=== PATIENT | male | born 1945 | race Caucasian/White ===

== ENCOUNTER 2017-08-13 13:00 | Inpatient (IN) | payer OTHER, MEDICARE ==
[~2017-08-13] VITALS: Ht 180.3 cm; Wt 79.5 kg
[~2017-08-13 13:00] MED LIST: IPRASOL4 INH; TIOTCAP INH; advair diskus INH; prednisone PO
[2017-08-13 15:06] VITALS: BP 148/75; PULSE 69; TEMP 36.8; O2SAT 92; Ht 180.3 cm; Wt 79.5 kg
[2017-08-13] MEDS ORDERED: MAGNESIUM HYDROXIDE SUSP 30 ML UDC PO PRN (16:00)
[2017-08-13] MEDS ORDERED: ALUMINUM/MAGNESIUM/SIMETH (MAALOX MAX) 30 ML UDC PO PRN (16:00)
[2017-08-13] MEDS ORDERED: ONDANSETRON INJ 2 MG/ML 2 ML VIAL IV PRN (16:00)
[2017-08-13] MEDS ORDERED: ACETAMINOPHEN 325 MG TAB PO PRN (16:00)
[2017-08-13] MEDS ORDERED: ALBUT/IPRATROP 3MG/0.5MG NEB 3 ML VIAL INH PRN (16:00)
[2017-08-13 16:15] VITALS: O2SAT 93
--- NOTE | 2017-08-13 16:35 | DIAGNOSTIC IMAGING REPORT ---
CHEST 2 VIEWS ROUTINE CLINICAL HISTORY: 71 years-old Male presenting with copd eval infiltrate or volume loss. TECHNIQUE: PA and lateral views of the chest were obtained. COMPARISON: 08/24/2015. FINDINGS: Atherosclerosis of the aortic arch. Cardiac silhouette normal in size. Mild hyperinflation. No focal opacity. No large effusion or pneumothorax. Degenerative changes of the thoracic spine. Mild height loss of several lower thoracic vertebral bodies, which is chronic. This may imply underlying osteopenia. Upper abdomen normal. IMPRESSION: 1. Mild hyperinflation could suggest underlying emphysema. No focal infiltrate to suggest pneumonia. Electronically signed by: Aman Cheney M.D. 08/13/2017 4:33 PM Dictated Date/Time: 08/13/2017 4:31 PM
[2017-08-13] MEDS: HEPARIN SOD 5000 UNIT/0.5 ML CARP SQ SCH (18:25)
[2017-08-13 19:51] VITALS: PULSE 67; O2SAT 93
[2017-08-13] MEDS: ALBUT/IPRATROP 3MG/0.5MG NEB 3 ML VIAL INH SCH (19:51)
[2017-08-13] MEDS: GUAIFENESIN 600 MG TABCR PO SCH (20:49)
--- NOTE | 2017-08-13 20:57 | History and Physical ---
History & Physical Date & Time of Service: Aug 13, 2017 at 20:50 Chief Complaint: Copd Exacerbation Primary Care Physician: Charli Real M.D. History of Present Illness 71-year-old male transferred from [facility] at the request of their inpatient service. Patient reportedly was admitted to their facility on 10 August after a near syncopal episode shortness of breath and pleuritic chest pain. Patient evaluation which included a cardiology evaluation and echocardiogram CT scan of his chest to evaluate for a wart 0.3 cm fusiform aneurysm that appears to be stable. Cardiology at that point time did not believe the patient had any significant acute coronary syndrome more on stable cardiac issues. The patient does take typically aspirin metoprolol daily. Patient is a baseline history of oxygen dependent COPD or chronic respiratory failure with hypoxia from previous tobacco abuse. He subsequently has been on a prednisone tapering dose Pro Air HFA Brethine and Brio elliptical along with Combivent Respimat. On the CT scan to look for this aneurysm which was measured on that tested 4.2 x 4.1 there was marked mucus plugging in the lower lobes with subsegmental bronchi and some atelectasis right greater than left. The patient previously has had a bronchoscopy at our facility for similar circumstances and although they attempted to discharge the patient home his breathlessness pleuritic chest pain and coughing with inability to feel comfortable prompted transfer for pulmonary evaluation. Family History Family history is positive for old age diabetes systemic staph infection Social History Smoking Status: Current Some Day Smoker (Patient continues to smoke small amounts of cigarettes daily) Marital Status: Immunizations History of Influenza Vaccine: Unknown Allergies Coded Allergies: No Known Allergies (Unverified , 09/18/15) Home Medications Scheduled Tiotropium [place] (Spiriva Handihaler), 1 CAP INH DAILY [advair diskus], 2 PUFF INH DAILY [prednisone], 1 TAB PO DAILY Scheduled PRN Ipratropium-Albuterol (Duoneb), 1 TREATMENT INH Q4H PRN for SOB/Wheezing Review of Systems ROS: well nourished well developed. No double vision blurry vision No problems with speech or swallowing No palpitations, chest pain or pressure No Wheezing but feels short of breath has pleuritic chest pain coughing and nonproductive of mucus wearing 3 L of oxygen No abdominal pain nausea vomiting diarrhea changes in appetite or weight No burning urine urine frequency or changes in color No focal joint pain or muscle pain No skin rashes or oral lesions No unusual bruising or bleeding No focused back pain or numbness or loss of strength No changes in memory or confusion Physical Exam Vital Signs Date Time Temp Pulse Resp B/P (MAP) Pulse Ox O2 Delivery O2 Flow Rate FiO2 08/13/17 19:51 67 18 93 Nasal Cannula 3.0 08/13/17 16:15 93 Nasal Cannula 3.0 08/13/17 15:06 92 Nasal Cannula 3.0 08/13/17 15:06 36.8 69 20 148/75 (99) 92 Nasal Cannula 3.0 General Appearance: WD/WN, + mild distress, + thin Head: normocephalic, atraumatic Eyes: normal inspection, sclerae normal Neck: supple, trachea midline Respiratory/Chest: + respiratory distress, + decreased breath sounds, + accessory muscle use Cardiovascular: regular rate, rhythm, no murmur Abdomen/GI: normal bowel sounds, non tender, soft Back: normal inspection, no muscle spasm Extremities/Musculoskelatal: no pedal edema, normal range of motion Neurologic/Psych: alert, oriented x 3 Skin: normal color, no rash Diagnostics Laboratory Results Results Past 24 Hours Test 08/13/17 16:57 Range/Units Prothrombin Time 10.7 9.0-12.0 SECONDS Prothromb Time International Ratio 1.0 0.9-1.[address] of CT scan from [facility] as mentioned in mucous plugging Impression Assessment and Plan 71-year-old male transferred from [facility] with chronic oxygen dependent hypoxic respiratory failure with failure to improve despite pulmonary toilet chest vest steroid treatment Mucous plugging, the patient be placed on Mucinex have a chest vest pulmonary consultation considering acetylcysteine. If need be will have a have him evaluated for bronchoscopy Oxygen dependent COPD chronic respiratory failure with hypoxia the patient will be supplemented with oxygen as needed prednisone 40 mg duo nebs and will add formoterol if needed Cardiovascular the patient is maintained on aspirin and metoprolol 0.5 twice daily This patient requires Ativan to sleep Tobacco abuse the patient is currently still smoking we did encourage him to have smoking cessation DVT prevention's heparin subcu Advanced Directives Existing Living Will: No Existing Power of Platform Mill Supervisor: No Resuscitation Status VTE Prophylaxis Will order VTE Prophylaxis: Yes
[2017-08-13] MEDS: LORAZEPAM 0.5 MG TAB PO SCH (21:24)
[2017-08-13 23:02] VITALS: BP 157/83; PULSE 60; TEMP 36.8; O2SAT 94
[2017-08-14] VITALS (10 sets, daily range): BP systolic 145–170; BP diastolic 78–96; PULSE 56–79; TEMP 36.4–36.8; O2SAT 92–96
[2017-08-14] MEDS: HEPARIN SOD 5000 UNIT/0.5 ML CARP SQ SCH ×2 (05:33→19:17)
[2017-08-14] MEDS: ALBUT/IPRATROP 3MG/0.5MG NEB 3 ML VIAL INH SCH ×5 (08:21→19:49)
[2017-08-14 08:31] LABS: HEMATOCRIT 38.9 % (42-52); HEMOGLOBIN 13.2 g/dL (14.0-18.0); MEAN CELL VOLUME 90.7 fL (80-100); MEAN CORPUSCULAR HEMOGLOBIN 30.8 pg (25-34); MEAN CORPUSCULAR HGB CONC 33.9 g/dl (32-36); MEAN PLATELET VOLUME 8.5 fL (7.4-10.4); PLATELET COUNT 216 K/uL (130-400); RED CELL DISTRIBUTION WIDTH CV 14.1 % (11.5-14.5); RED CELL DISTRIBUTION WIDTH SD 46.5 fL (36.4-46.3); WHITE BLOOD COUNT 12.14 K/uL (4.8-10.8)
[2017-08-14] MEDS: GUAIFENESIN 600 MG TABCR PO SCH ×2 (08:46→21:40)
[2017-08-14 09:07] LABS: CALCIUM 8.5 mg/dl (8.5-10.1); CREATININE 1.17 mg/dl (0.60-1.40); POTASSIUM 3.7 mmol/L (3.5-5.1)
--- NOTE | 2017-08-14 10:19 | PULMONARY CONSULTATION ---
DATE OF CONSULTATION: 08/14/2017 TIME: 8:25 a.m. REPORT OF CONSULTATION: The patient was seen in room 381. He is a 71-year-old male who has a history of breathing difficulties for about 5 years. He is treated for COPD. He was admitted to [facility] on or about 08/10/2017. At that time, he had shortness of breath. He states his chest was rattling. He had some chest tightness related to breathing. He denies true pain in the chest. Apparently, he felt like he could pass out from the perspective of being so short of breath. He did pass out and he denies that he was having a severe cough giving near tussive syncope. He underwent an evaluation there for a couple of days. Reportedly, cardiac sarah, he checked out without any acute issues. They did a CAT scan of the chest to evaluate an aortic aneurysm. Reportedly, he had secretions seen in the lower lung serrato. The patient states he was not feeling much better. He was concerned about going home. The patient lives by himself. He has a large bag of various medicines that he is on or has been on. He was actually sick for about 3 weeks before coming to the hospital. He was treated first with cefuroxime and prednisone. He states at that time he had a very low-grade fever. He had a lot of chest congestion, which did not resolve. He thinks he was on a second antibiotic as well. The patient states that he was hospitalized at [facility] in October 2016. He was discharged to a alf where he stayed for 7 weeks. He did not smoke at all while he was in the alf and he felt great. Following discharge, he gradually has increased his smoking. He smokes what he describes as small cigars. He states most of his life he smoked about 11 per day. He is now smoking 1 or less than 1, but he is smoking. He notices he coughs more when he smokes. In 2015, he had an outpatient bronchoscopy done by Dr. Ireland at [facility]. Reportedly, he had very extensive secretions. The patient relates that he did not feel too much better afterwards. The patient lives alone. He has steps from the basement up stairs. He tries not to do the steps very often because he gets short of breath. He is winded with relatively minimal exertion. He is finding it harder to care for himself. He states his house is a total mess and he feels that he needs some help in that regard. His energy level has been low. He is not having any heartburn or upset stomach. He is having difficulty with urination. His stream is very slow. He has been on Spiriva which could be contributing to that. The patient indicates that in terms of his breathing medicines, he is taking Mucinex twice a day with each dose being 600 mg. He also does neb treatments with DuoNebs about 3 times per day and does Combivent Respimat about twice per day. He does Advair 500/50 one puff b.i.d. He has ProAir for rescue. I do not believe he is on everyday prednisone. SOCIAL HISTORY: The patient smoked cigars as noted. He has smoked for 50 years. 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 It was very desean. FAMILY HISTORY: Mother at age 82, had diabetes and she had a staph infection. Father in his 90s from what the patient describes as old age. He states he had 11 siblings and none of them had any significant lung problems. PAST SURGICAL HISTORY: 1. Removal of a cyst from his scalp. 2. Hernia repair. 3. Bronchoscopy. PAST MEDICAL HISTORY: The patient denies illnesses except for his lung problems. He does admit, however, he is taking a medicine for his prostate. REVIEW OF SYSTEMS: Negative except for the above-mentioned complaints. Ten systems reviewed. PHYSICAL EXAMINATION: GENERAL: The patient is a 71-year-old male who was cooperative, alert and oriented. He was in no distress. VITAL SIGNS: Temperature is 36.4. He has not had any fevers since admission. He appeared reasonably comfortable at rest. HEENT: Pupils were reactive. Nares were clear. Mouth exam showed dry membranes. There was no teeth on top and decreased teeth on the bottom. No evidence of oral candidiasis was noted. NECK: Palpation of the neck reveals no lymph nodes. HEART: Heart rate was 70 per minute. The rhythm is regular. Blood pressure 170/96. The patient denied a history of hypertension. LUNGS: Auscultation of the lung serrato reveals rhonchi bilaterally. His respiratory rate was 18 breaths per minute. Saturation was 92% on 3 liters and this was taken by myself. ABDOMEN: Soft. Bowel sounds were normal. There was no tenderness to palpation, masses or organomegaly. EXTREMITIES: Showed no cyanosis, clubbing or edema. He has some scarring on the left lower leg anteriorly. He states he has to take some antibiotics for this periodically. LABORATORY DATA: We have no laboratory studies done since he was admitted here. I could not find records from [facility] during this most recent hospital stay prior to transfer. IMPRESSIONS: 1. Chronic obstructive pulmonary disease with exacerbation. 2. Nicotine addiction. COMMENTS: The patient appears to have a very significant COPD. He states he has never had a pulmonary function test. Perhaps we could get a baseline spirometry pre and post today, if possible. I would suggest ambulating the patient as much as possible utilizing his O2 at 3 liters. I believe increased ambulation will perhaps help him with secretion clearance. He does have a flutter valve in his room. He states he has never used this before. I believe he should discontinue using the Spiriva because of his prostate problems. He should be off at least 2 weeks to reassess if his urination is better. We would add some Mucomyst twice per day by nebulizer. If the patient does not improve, he would be a candidate for a bronchoscopy. Presumably, this could be done on Thursday if need be. I am probably going to order an arterial blood gas for him to evaluate his CO2 levels before undergoing a bronchoscopy. He did have difficulty with oxygen desaturations during the prior bronchoscopy and the procedure had to be terminated early. The patient is on terbutaline tablets at home. I think he should discontinue that. Thank you for asking me to assist in his care.
[2017-08-14] MEDS: ACETYLCYSTEINE INHAL SOLN 10% 4 ML INH SCH ×3 (10:30→19:49)
[2017-08-14] MEDS ORDERED: NURSING VERBAL MED ORDER ONE ×2 (11:00)
[2017-08-14] MEDS ORDERED: METOPROLOL SUCC 25MG EXT REL TAB PO ONE (11:15)
--- NOTE | 2017-08-14 11:52 | Clinical Documentation Query ---
CLINICAL DOCUMENTATION QUERY Dr. BAIN, In your clinical opinion is this patient being managed for: ( ) Exacerbation COPD ( ) Not Agree ( ) Other explanation of clinical findings (Please Explain) ( ) Unable to determine (Please Define) ( ) Need to Discuss The medical record reflects the following clinical findings, treatment, and risk factors. Clinical Indicators: 71 yo male transferred from [facility] due to continued dyspnea, pleuritic chest pain and coughing. CXR with mild hyperinflation suggesting possible emphysema. Treatment: O2 support, Pulmonary consult, add mucomyst nebs, ABG, prednisone, duonebs Risk Factors:severe COPD, continued tobacco use, Please clarify and document your clinical opinion in the progress notes and discharge summary. Terms such as "probable", "suspected", "likely", "questionable", "possible", or "still to be ruled out" are acceptable. IF IN AGREEMENT, YOU MUST DOCUMENT ABOVE DIAGNOSTIC STATEMENT IN DAILY PROGRESS NOTES AND DISCHARGE SUMMARY. This document is not part of the patient's record. Thank You, Ronel Guerra, RN [phone]
[2017-08-14] MEDS: LORAZEPAM 0.5 MG TAB PO SCH (21:40)
[2017-08-14] MEDS: METOPROLOL SUCC 25MG EXT REL TAB PO SCH (21:43)
[2017-08-15] VITALS (8 sets, daily range): BP systolic 126–173; BP diastolic 66–91; PULSE 54–76; TEMP 36.4–36.6; O2SAT 93–96
[2017-08-15] MEDS: HEPARIN SOD 5000 UNIT/0.5 ML CARP SQ SCH ×2 (05:52→18:00)
[2017-08-15] MEDS: ACETYLCYSTEINE INHAL SOLN 10% 4 ML INH SCH ×2 (07:23→19:53)
[2017-08-15] MEDS: ALBUT/IPRATROP 3MG/0.5MG NEB 3 ML VIAL INH SCH ×4 (07:23→19:52)
--- NOTE | 2017-08-15 08:29 | Progress Note ---
Subjective Date of Service: Aug 14, 2017. Subjective Pt evaluation today including: conversation w/ patient, physical exam Patient seen at 14:00 on Aug 14, 2017 Patient admitted for COPD exacerbation. Patient reports having wheezing and reports feeling SOB at rest. Patient denies fever, chills, nausea, vomiting. Review of Systems Constitutional: No fever, No chills Eyes: No worsening of vision Respiratory: + cough, + wheezing, + shortness of breath Cardiac: No chest pain Abdomen: No pain, No nausea Musculoskeletal: No joint pain Neurologic: + memory loss Heme: No abnormal bleeding/bruising Endo: No fatigue Skin: No rash All Other Systems: Reviewed and Negative Objective Vital Signs Date Time Temp Pulse Resp B/P (MAP) Pulse Ox O2 Delivery O2 Flow Rate FiO2 08/15/17 07:46 36.4 54 20 173/84 (113) 94 Nasal Cannula 3.0 08/15/17 07:23 57 16 93 Nasal Cannula 3.0 08/15/17 07:15 Nasal Cannula 3.0 08/15/17 03:36 56 156/84 (108) 08/15/17 00:30 Nasal Cannula 3.0 08/14/17 23:07 36.7 56 22 160/95 (116) 96 Nasal Cannula 2.0 08/14/17 21:40 73 145/78 (100) 08/14/17 19:35 73 16 96 Nasal Cannula 3.0 08/14/17 16:22 73 16 96 Nasal Cannula 3.0 08/14/17 16:10 96 Nasal Cannula 3.0 08/14/17 15:21 36.8 73 18 165/92 (116) 96 Nasal Cannula 3.0 08/14/17 10:37 79 160/92 (114) 92 Nasal Cannula 3.0 08/14/17 09:37 94 Nasal Cannula 3.0 Physical Exam General Appearance: WD/WN, no apparent distress Eyes: normal inspection ENT: normal ENT inspection Neck: supple, no adenopathy Respiratory/Chest: + pertinent finding (BL rhonchi) Cardiovascular: regular rate, rhythm, no edema Abdomen: normal bowel sounds, non tender, soft Extremities: normal range of motion, normal inspection Neurologic/Psychiatric: alert, oriented x 3 Skin: normal color Lymphatic: no adenopathy Laboratory Results Last 24 Hours Test 08/14/17 09:05 Arterial Blood pH 7.43 Arterial Blood Partial Pressure CO2 42 mmHg Arterial Blood Partial Pressure O2 65 mm/Hg Arterial Blood HCO3 27 mmol/L Arterial Blood Oxygen Saturation 91.7 % Arterial Blood Base Excess 2.5 mEq/L Arterial Blood Gas Delivery 3 LITERS Ethan Test POS Assessment and Plan 71-year-old male transferred from [facility] with chronic oxygen dependent hypoxic respiratory failure with failure to improve despite pulmonary toilet chest vest steroid treatment Hypoxic resp. failure Likely from mucous plugging Appreciate pulmonary recommendations. will likely require bronch on Thursday. Added mucomyst Oxygen dependent COPD chronic respiratory failure with hypoxia the patient will be supplemented with oxygen as needed prednisone 40 mg duo nebs Cardiovascular the patient is maintained on aspirin and metoprolol 0.5 twice daily Insomnia requires Ativan to sleep Tobacco abuse currently still smoking we did encourage him to have smoking cessation DVT prevention's heparin subcu Continued [facility] stay due to: other (SOB/ Bronch thursday if no improvement over )
[2017-08-15 08:44] LABS: HEMATOCRIT 40.8 % (42-52); MEAN CELL VOLUME 91.1 fL (80-100); MEAN CORPUSCULAR HEMOGLOBIN 31.3 pg (25-34); MEAN CORPUSCULAR HGB CONC 34.3 g/dl (32-36); MEAN PLATELET VOLUME 8.7 fL (7.4-10.4); PLATELET COUNT 215 K/uL (130-400); RED CELL DISTRIBUTION WIDTH CV 14.1 % (11.5-14.5); RED CELL DISTRIBUTION WIDTH SD 46.6 fL (36.4-46.3); WHITE BLOOD COUNT 12.39 K/uL (4.8-10.8)
[2017-08-15] MEDS: GUAIFENESIN 600 MG TABCR PO SCH ×2 (08:46→20:46)
[2017-08-15] MEDS: METOPROLOL SUCC 25MG EXT REL TAB PO SCH ×2 (08:47→20:45)
[2017-08-15 09:12] LABS: CALCIUM 8.4 mg/dl (8.5-10.1); CREATININE 1.16 mg/dl (0.60-1.40); POTASSIUM 3.7 mmol/L (3.5-5.1)
--- NOTE | 2017-08-15 14:17 | PULMONARY PROGRESS NOTE ---
DATE: 08/15/2017 TIME: 1:40 p.m. SUBJECTIVE: The patient believes he feels better today. He is not as short of breath. However, although he feels better, he has not coughed up any phlegm. His sister was with him during this evaluation. He is not having any specific complaints at present. OBJECTIVE: GENERAL: The patient appeared comfortable. VITAL SIGNS: Temperature was 36.4. CARDIOVASCULAR: The heart rate was 66 per minute. The rhythm was regular. Blood pressure 173/84. LUNGS: Lung serrato revealed mild rhonchi bilaterally. It does seem to be a little less prominent than yesterday. Respiratory rate was 16 breaths per minute. Saturation was 94% on 3 liters. EXTREMITIES: Showed no cyanosis, clubbing or edema. LABORATORY DATA: White count is 12.39. Hemoglobin 14. Platelets 215,000. Blood gas showed a pH of 7.43 with a pCO2 of 42 and a pO2 of 65. Electrolytes were normal. BUN was 30 with a creatinine of 1.16. We did arrange for the patient to have a pulmonary function test done yesterday. This showed a moderate obstructive pattern with no change following bronchodilators. IMPRESSIONS: 1. Chronic obstructive pulmonary disease with exacerbation. 2. Probable retained secretions. 3. Nicotine addiction. COMMENTS: Would continue with the current therapy. Unless the patient is significantly improved tomorrow, we will tentatively set him up for a scope on Thursday by Dr. Ireland. He has been on vacation and thus we cannot confirm 100% that he can do this, but we are hopeful that he could.
[2017-08-15] MEDS: LORAZEPAM 0.5 MG TAB PO SCH (20:45)
[2017-08-16] VITALS (9 sets, daily range): BP systolic 134–144; BP diastolic 84–92; PULSE 52–82; TEMP 36.5–37.1; O2SAT 90–97
[2017-08-16] MEDS: HEPARIN SOD 5000 UNIT/0.5 ML CARP SQ SCH ×2 (06:37→18:00)
[2017-08-16 06:58] LABS: HEMATOCRIT 40.4 % (42-52); HEMOGLOBIN 13.8 g/dL (14.0-18.0); MEAN CELL VOLUME 90.4 fL (80-100); MEAN CORPUSCULAR HEMOGLOBIN 30.9 pg (25-34); MEAN CORPUSCULAR HGB CONC 34.2 g/dl (32-36); MEAN PLATELET VOLUME 9.1 fL (7.4-10.4); PLATELET COUNT 227 K/uL (130-400); WHITE BLOOD COUNT 13.63 K/uL (4.8-10.8)
[2017-08-16 07:15] LABS: CALCIUM 8.2 mg/dl (8.5-10.1); CREATININE 1.08 mg/dl (0.60-1.40); POTASSIUM 3.8 mmol/L (3.5-5.1)
[2017-08-16] MEDS: ALBUT/IPRATROP 3MG/0.5MG NEB 3 ML VIAL INH SCH ×4 (07:33→20:17)
[2017-08-16] MEDS: ACETYLCYSTEINE INHAL SOLN 10% 4 ML INH SCH ×2 (07:33→20:17)
[2017-08-16] MEDS: GUAIFENESIN 600 MG TABCR PO SCH ×2 (09:01→21:50)
[2017-08-16] MEDS: METOPROLOL SUCC 25MG EXT REL TAB PO SCH ×2 (09:03→21:50)
--- NOTE | 2017-08-16 12:57 | PULMONARY PROGRESS NOTE ---
DATE: 08/16/2017 TIME: 12:15 p.m. SUBJECTIVE: The patient feels about the same. He still feels moderately congested. He has not expectorated any phlegm. He does believe that his urine flow is somewhat better since he is off the Spiriva. OBJECTIVE: GENERAL: The patient is comfortable at rest. HEART: Heart rate is 55 per minute. Blood pressure was 144/86. LUNGS: Lung serrato revealed mild to moderate rhonchi bilaterally posteriorly. Saturation was 90% on 3 liters. Respiratory rate was 16. He did not look in distress. LABORATORY DATA: White count today is 13.63. Hemoglobin 13.8. Platelets 227,000. Sodium 139, potassium 3.8, chloride 107, bicarbonate 26. BUN was 34 with a creatinine of 1.08. IMPRESSIONS: 1. Chronic obstructive pulmonary disease with exacerbation. 2. Probable retained secretions. 3. Nicotine addiction. PLAN: We are going to make the patient n.p.o. after midnight tonight. Dr. Ireland will be back tomorrow. Hopefully, he will be able to do the scope. I cannot confirm that until tomorrow morning, however. If this still gets done and he has no problems, the patient may be able to go home later in the day. Perhaps, the patient should follow up with Dr. Ireland or Soham Holguin PA-C, at [facility]. He states he lives 50 miles from here, but [place] is only 20 miles from his home.
--- NOTE | 2017-08-16 16:15 | PULMONARY FUNCTION TEST ---
INTERPRETATION: Spirometry shows a moderate obstructive pattern. Repeat study done following bronchodilators showed no change in function. Flow volume loops were consistent with spirometric findings. 1.
[2017-08-16] MEDS: LORAZEPAM 0.5 MG TAB PO SCH (21:50)
--- NOTE | 2017-08-16 23:02 | Progress Note ---
Subjective Date of Service: Aug 15, 2017. Subjective Pt evaluation today including: conversation w/ patient Patient seen on August 15 2017 at 15:00 Patient continues to have SOB even at rest. Patient reports only mild improvement. Review of Systems Constitutional: No fever, No chills Eyes: No worsening of vision Respiratory: + cough, + shortness of breath Cardiac: No chest pain Breast: No breast lump Abdomen: No pain Musculoskeletal: No joint pain Neurologic: No memory loss Psychiatric: No depression symptoms Endo: No fatigue Skin: No rash All Other Systems: Reviewed and Negative Objective Vital Signs Date Time Temp Pulse Resp B/P (MAP) Pulse Ox O2 Delivery O2 Flow Rate FiO2 08/16/17 20:17 74 16 97 Nasal Cannula 3.0 08/16/17 15:50 Nasal Cannula 3.0 08/16/17 15:40 55 16 90 Nasal Cannula 3.0 08/16/17 15:08 36.5 82 22 139/92 (108) 91 Nasal Cannula 3.0 08/16/17 11:40 55 16 90 Nasal Cannula 3.0 08/16/17 09:03 75 08/16/17 09:00 Nasal Cannula 3.0 08/16/17 07:33 52 16 94 Nasal Cannula 3.0 08/16/17 07:20 37.1 54 18 144/88 (106) 96 Nasal Cannula 3.0 08/15/17 23:30 Nasal Cannula 08/15/17 23:04 36.6 64 17 162/91 (114) 96 Nasal Cannula 3.0 Physical Exam Comments: General Appearance: WD/WN, no apparent distress Eyes: normal inspection ENT: normal ENT inspection Neck: supple, no adenopathy Respiratory/Chest: + pertinent finding (BL rhonchi) Cardiovascular: regular rate, rhythm, no edema Abdomen: normal bowel sounds, non tender, soft Extremities: normal range of motion, normal inspection Neurologic/Psychiatric: alert, oriented x 3 Skin: normal color Lymphatic: no adenopathy Laboratory Results Last 24 Hours Test 08/16/17 06:20 White Blood Count 13.63 K/uL Red Blood Count 4.47 M/uL Hemoglobin 13.8 g/dL Hematocrit 40.4 % Mean Corpuscular Volume 90.4 fL Mean Corpuscular Hemoglobin 30.9 pg Mean Corpuscular Hemoglobin Concent 34.2 g/dl RDW Standard Deviation 46.0 fL RDW Coefficient of Variation 14.0 % Platelet Count 227 K/uL Mean Platelet Volume 9.1 fL Sodium Level 139 mmol/L Potassium Level 3.8 mmol/L Chloride Level 107 mmol/L Carbon Dioxide Level 26 mmol/L Anion Gap 6.0 mmol/L Blood Urea Nitrogen 34 mg/dl Creatinine 1.08 mg/dl Est Creatinine Clear Calc Drug Dose 66.8 ml/min Estimated GFR () 79.6 Estimated GFR (Non- 68.7 BUN/Creatinine Ratio 31.3 Random Glucose 76 mg/dl Calcium Level 8.2 mg/dl Assessment and Plan 71-year-old male transferred from [facility] with chronic oxygen dependent hypoxic respiratory failure with failure to improve despite pulmonary toilet chest vest steroid treatment Hypoxic resp. failure Likely from mucous plugging Still having rhonchi. Patient is ambulating and is receiving breathing treatment. PFT show moderate COPD. Appreciate pulmonary recommendations. will likely require bronch on Thursday. Added mucomyst Oxygen dependent COPD chronic respiratory failure with hypoxia the patient will be supplemented with oxygen as needed prednisone 40 mg duo nebs Cardiovascular the patient is maintained on aspirin and metoprolol 0.5 twice daily Insomnia requires Ativan to sleep Tobacco abuse currently still smoking we did encourage him to have smoking cessation DVT prevention's heparin subcu Continued [facility] stay due to: other (Bronch on Thursday)
--- NOTE | 2017-08-16 23:03 | Progress Note ---
Subjective Date of Service: Aug 16, 2017. Subjective Pt evaluation today including: conversation w/ patient Patient examined on Aug 16 at 12:00 No significant change today. Review of Systems All Other Systems: Reviewed and Negative Medications Current Inpatient Medications Medications (Trade) Dose Ordered Sig/Hitesh Route Start Time Stop Time Status Last Admin Dose Admin Acetaminophen (Tylenol Tab) 650 mg Q4H PRN PO 08/13/17 16:00 09/12/17 15:59 Al Hydrox/Mg Hydrox/Simethicone (Maalox Max Susp) 15 ml Q4H PRN PO 08/13/17 16:00 09/12/17 15:59 Magnesium Hydroxide (Milk Of Magnesia Susp) 30 ml Q6H PRN PO 08/13/17 16:00 09/12/17 15:59 Ondansetron HCl (Zofran Inj) 4 mg Q6H PRN IV 08/13/17 16:00 09/12/17 15:59 Heparin Sodium (Porcine) (Heparin Sq 5000 Unit/0.5ml) 5,000 unit Q12H SQ 08/13/17 18:00 09/12/17 17:59 08/16/17 06:37 5,000 UNIT Albuterol/ Ipratropium (Duoneb) 3 ml QIDR INH 08/13/17 16:00 09/12/17 15:59 08/16/17 20:17 3 ML Albuterol/ Ipratropium (Duoneb) 3 ml Q2H PRN INH 08/13/17 16:00 09/12/17 15:59 Prednisone (PredniSONE TAB) 40 mg DAILY PO 08/14/17 09:00 09/13/17 08:59 08/16/17 09:01 40 MG Guaifenesin (Mucinex Contr Rel Tab) 1,200 mg Q12 PO 08/13/17 21:00 09/12/17 20:59 08/16/17 21:50 1,200 MG Lorazepam (Ativan Tab) 0.5 mg HS PO 08/13/17 21:00 09/12/17 20:59 08/16/17 21:50 0.5 MG Acetylcysteine (Mucomyst-10) 2 ml BIDR INH 08/14/17 10:30 09/13/17 10:29 08/16/17 20:17 2 ML Metoprolol Succinate (Toprol Xl Tab) 12.5 mg BID PO 08/14/17 21:00 09/13/17 20:59 08/16/17 21:50 12.5 MG Objective Vital Signs Date Time Temp Pulse Resp B/P (MAP) Pulse Ox O2 Delivery O2 Flow Rate FiO2 08/16/17 20:17 74 16 97 Nasal Cannula 3.0 08/16/17 15:50 Nasal Cannula 3.0 08/16/17 15:40 55 16 90 Nasal Cannula 3.0 08/16/17 15:08 36.5 82 22 139/92 (108) 91 Nasal Cannula 3.0 08/16/17 11:40 55 16 90 Nasal Cannula 3.0 08/16/17 09:03 75 08/16/17 09:00 Nasal Cannula 3.0 08/16/17 07:33 52 16 94 Nasal Cannula 3.0 08/16/17 07:20 37.1 54 18 144/88 (106) 96 Nasal Cannula 3.0 08/15/17 23:30 Nasal Cannula 08/15/17 23:04 36.6 64 17 162/91 (114) 96 Nasal Cannula 3.0 Physical Exam Comments: General Appearance: WD/WN, no apparent distress Eyes: normal inspection ENT: normal ENT inspection Neck: supple, no adenopathy Respiratory/Chest: + pertinent finding (BL rhonchi) Cardiovascular: regular rate, rhythm, no edema Abdomen: normal bowel sounds, non tender, soft Extremities: normal range of motion, normal inspection Neurologic/Psychiatric: alert, oriented x 3 Skin: normal color Lymphatic: no adenopathy Laboratory Results Last 24 Hours Test 08/16/17 06:20 White Blood Count 13.63 K/uL Red Blood Count 4.47 M/uL Hemoglobin 13.8 g/dL Hematocrit 40.4 % Mean Corpuscular Volume 90.4 fL Mean Corpuscular Hemoglobin 30.9 pg Mean Corpuscular Hemoglobin Concent 34.2 g/dl RDW Standard Deviation 46.0 fL RDW Coefficient of Variation 14.0 % Platelet Count 227 K/uL Mean Platelet Volume 9.1 fL Sodium Level 139 mmol/L Potassium Level 3.8 mmol/L Chloride Level 107 mmol/L Carbon Dioxide Level 26 mmol/L Anion Gap 6.0 mmol/L Blood Urea Nitrogen 34 mg/dl Creatinine 1.08 mg/dl Est Creatinine Clear Calc Drug Dose 66.8 ml/min Estimated GFR () 79.6 Estimated GFR (Non- 68.7 BUN/Creatinine Ratio 31.3 Random Glucose 76 mg/dl Calcium Level 8.2 mg/dl Assessment and Plan 71-year-old male transferred from [facility] with chronic oxygen dependent hypoxic respiratory failure with failure to improve despite pulmonary toilet chest vest steroid treatment Hypoxic resp. failure Likely from mucous plugging NPO after midnight for bronch in AM Still having rhonchi. Continues to require 3l nasal cannula Patient is ambulating and is receiving breathing treatment. PFT show moderate COPD. Appreciate pulmonary recommendations. will likely require bronch on Thursday. Added mucomyst Oxygen dependent COPD chronic respiratory failure with hypoxia the patient will be supplemented with oxygen as needed prednisone 40 mg duo nebs Cardiovascular the patient is maintained on aspirin and metoprolol 0.5 twice daily Insomnia requires Ativan to sleep Tobacco abuse currently still smoking we did encourage him to have smoking cessation DVT prevention's heparin subcu
[2017-08-17] VITALS (9 sets, daily range): BP systolic 95–156; BP diastolic 70–90; PULSE 54–70; TEMP 36.4–37; O2SAT 94–96
[2017-08-17] MEDS: HEPARIN SOD 5000 UNIT/0.5 ML CARP SQ SCH ×2 (06:00→18:29)
[2017-08-17] MEDS ORDERED: SODIUM CHLORIDE 0.9% 1000ML 1,000 ML IV SCH (07:19)
--- NOTE | 2017-08-17 07:22 | History & Physical Bridge Note ---
H&P Re-Evaluation Bridge Note: I have examined the patient, reviewed the History & Physical and in the interval since the performance of the History & Physical I have noted the following changes of clinical significance: No changes noted
--- NOTE | 2017-08-17 07:23 | Pre Sedation Assessment ---
Pre Sedation Assessment General Date of Sedation: Aug 17, 2017. Vital Signs Past 12 Hours Date Time Temp Pulse Resp B/P (MAP) Pulse Ox O2 Delivery O2 Flow Rate FiO2 08/16/17 23:40 94 Nasal Cannula 3.0 08/16/17 23:10 36.5 63 16 134/84 (101) 94 Nasal Cannula 3.0 08/16/17 20:17 74 16 97 Nasal Cannula 3.0 Review Cardiovascular: regular rate, rhythm Lungs: + decreased breath sounds Pre-Sedation Airway Assessment Smoking Status: Current Some Day Smoker (Patient continues to smoke small amounts of cigarettes daily) Hx of Sleep Apnea: No Oral Cavity: WNL Mallampati Classification: Class II ASA Classification: Class III NPO Status Date of Last Intake of Fluids: Aug 16, 2017 Time of Last Intake of Fluids: 2358 Date of Last Intake of Solids: Aug 16, 2017 Time of Last Intake of Solids: 2358 Notes The planned sedation has been discussed with the patient. Informed Consent was obtained. I have identified the patient, determined the appropriateness of sedation and have assessed the patient immediately prior to the procedure. All medicine(s) and interventions are by my order.
--- NOTE | 2017-08-17 07:41 | PULMONARY PROGRESS NOTE ---
DATE: 08/17/2017 TIME: 729. The patient evaluation today including conversation with the patient and examination. SUBJECTIVE: The patient continues to complain of chest tightness and inability to expectorate phlegm. He last underwent bronchoscopic evaluation with myself in 09/2015 with large amount of thick mucoviscous secretion, requiring copious instillation of both saline and Mucomyst, and I believe a similar situation exists here. We will schedule him for bronchoscopic intervention at 1100. REVIEW OF SYSTEMS AND MEDICATIONS: I refer you to current records. PHYSICAL EXAMINATION: GENERAL: Reveals a well-developed, well-nourished white male, resting comfortably in bed. VITAL SIGNS: Pulse 74 and regular, respiratory rate 16, O2 sat 97% on 3 liters, temperature 36.5. SKIN: Without lesion. HEENT: Atraumatic, normocephalic. PERRLA, EOMI. Conjunctivae pink. Sclerae nonicteric. Fundi poorly visualized. NECK: Neck veins are not distended at 45 degrees. LUNGS: Distant P&A with scattered rhonchi. CARDIAC: Regular rhythm. No murmurs or gallops. ABDOMEN: Soft, scaphoid. EXTREMITIES: No pedal edema, clubbing or cyanosis. NEUROLOGIC: Intact. OVERALL ASSESSMENT: A 71-year-old with moderate to severe chronic obstructive pulmonary disease, O2 dependent, admitted with hypoxic respiratory failure with failure to significantly improve since admission. We will schedule bronchoscopic evaluation today and make further recommendations including possible discharge this evening following the procedure.
[2017-08-17] MEDS: ALBUT/IPRATROP 3MG/0.5MG NEB 3 ML VIAL INH SCH ×4 (07:43→19:58)
[2017-08-17] MEDS: GUAIFENESIN 600 MG TABCR PO SCH ×2 (09:00→20:28)
[2017-08-17] MEDS: METOPROLOL SUCC 25MG EXT REL TAB PO SCH ×2 (09:00→20:29)
--- NOTE | 2017-08-17 10:25 | Progress Note ---
Subjective Date of Service: Aug 17, 2017. Subjective Pt evaluation today including: conversation w/ patient, conversation w/ provider contracting consultant Pt is feeling much improved s/p bronch. Still congested but SOB is much better. "Things feel broken up in there." He ate all of his tray s/p procedure. Pt denies fever, chest pain, abd pain, n/v/c/d, LE pain or swelling. Review of Systems All Other Systems: Reviewed and Negative Objective Vital Signs Date Time Temp Pulse Resp B/P (MAP) Pulse Ox O2 Delivery O2 Flow Rate FiO2 08/17/17 10:14 37.0 54 16 145/85 (105) 96 Nasal Cannula 3.0 08/17/17 07:52 94 Nasal Cannula 3.0 08/17/17 07:48 36.5 63 14 144/90 (108) 94 Nasal Cannula 3.0 08/17/17 07:43 55 16 94 Nasal Cannula 3.0 08/17/17 07:25 Nasal Cannula 3.0 08/16/17 23:40 94 Nasal Cannula 3.0 08/16/17 23:10 36.5 63 16 134/84 (101) 94 Nasal Cannula 3.0 08/16/17 20:17 74 16 97 Nasal Cannula 3.0 08/16/17 15:50 Nasal Cannula 3.0 08/16/17 15:40 55 16 90 Nasal Cannula 3.0 08/16/17 15:08 36.5 82 22 139/92 (108) 91 Nasal Cannula 3.0 08/16/17 11:40 55 16 90 Nasal Cannula 3.0 Physical Exam General Appearance: WD/WN, no apparent distress Eyes: normal inspection, sclerae normal Respiratory/Chest: no respiratory distress, + rhonchi Cardiovascular: regular rate, rhythm, no edema Abdomen: non tender, soft Extremities: non-tender, no pedal edema Neurologic/Psychiatric: alert, normal mood/affect Skin: normal color, warm/dry Assessment and Plan 71-year-old male transferred from [facility] with chronic oxygen dependent hypoxic respiratory failure with failure to improve despite pulmonary toilet chest vest steroid treatment Hypoxic resp. failure Likely from mucous plugging and much improved s/p bronch 08/17 Bronch noted for severe mucoid impaction Baseline home nasal cannula Patient is ambulating and is receiving breathing treatment. PFT show moderate COPD. Mucomyst Oxygen dependent COPD chronic respiratory failure with hypoxia the patient will be supplemented with oxygen as needed prednisone 40 mg QD, duo nebs Cardiovascular the patient is maintained on aspirin and metoprolol 0.5 twice daily Insomnia requires Ativan to sleep Tobacco abuse currently still smoking we did encourage him to have smoking cessation DVT prevention's heparin subcu Pulm recs for overnight monitoring s/p bronch Continued [facility] stay due to: other (Bronch on Thursday)
--- NOTE | 2017-08-17 11:13 | [facility] Operative Report ---
Operative Report Operative Date Aug 17, 2017. Pre-Operative Diagnosis COPD WITH MUCOID IMPACTION Post-Operative Diagnosis COPD WITH MUCOID IMPACTION Procedure(s) Performed BRONCHOSCOPY Surgeon DR. SCHAFFER Director Of Staff Development Surgeon(s) NONE Findings Severe mucoid impaction EDAC Specimens RIGHT AND LEFT WASHING Disposition I attest to the content of the Intraoperative Record and any orders documented therein. Any exceptions are noted below.
[2017-08-17] MEDS ORDERED: LEVALBUTEROL 1.25MG/3ML NEB INH ONE (11:14)
[2017-08-17] MEDS ORDERED: ACETYLCYSTEINE 200MG/ML 30ML VIAL NG ONE (11:14)
[2017-08-17] MEDS ORDERED: LIDOCAINE VISCOUS 2% 100ML TOP ONE (11:14)
[2017-08-17] MEDS ORDERED: LIDOCAINE HCL 2% LOCAL 50ML VIAL INSTIL ONE (11:14)
[2017-08-17] MEDS ORDERED: OXYMETAZOLINE HCL 0.05% NA SPR 15 ML BTL ONE (11:14)
[2017-08-17] MEDS ORDERED: FENTANYL CITRATE INJ 50 MCG/1 ML 2 ML VIAL IV ONE (11:14)
[2017-08-17] MEDS ORDERED: MIDAZOLAM HCL 5 MG/ML 1 ML VIAL IV ONE (11:14)
[2017-08-17] MEDS ORDERED: LIDOCAINE 4% INH SOLN 4 ML BTL TOP ONE (11:14)
--- NOTE | 2017-08-17 11:14 | Post Sedation Assessment ---
Post Sedation Assessment General Date of Sedation Aug 17, 2017. Vital Signs: Vital Signs Past 12 Hours Date Time Temp Pulse Resp B/P (MAP) Pulse Ox O2 Delivery O2 Flow Rate FiO2 08/17/17 10:55 55 16 131/97 95 Mask 10 08/17/17 10:50 80 16 132/6 94 Mask 10 08/17/17 10:45 58 16 159/85 96 Mask 3.0 08/17/17 10:40 54 16 135/93 96 Nasal Cannula 3.0 08/17/17 10:14 37.0 54 16 145/85 (105) 96 Nasal Cannula 3.0 08/17/17 07:52 94 Nasal Cannula 3.0 08/17/17 07:48 36.5 63 14 144/90 (108) 94 Nasal Cannula 3.0 08/17/17 07:43 55 16 94 Nasal Cannula 3.0 08/17/17 07:25 Nasal Cannula 3.0 08/16/17 23:40 94 Nasal Cannula 3.0 Post Procedure Recovery Score Activity: (2) Moves 4 extremities * Respiration: (2) Deep breath/cough Circulation: (2) +/-20% PreAnes Value Consciousness: (2) Fully Awake Oxygen Saturation: (1) O2 needed for >90% Post Anesthesia Score: 9 Discharge Sedation Level of Care: Fast Track Phase II Post Sedation Plan On clinical assessment, the patient appears to have tolerated the sedation without complications. Patient is recovering as anticipated. Patient will continue to be monitored by nursing and may be discharged when sedation discharge criteria are met per below protocol. Upon Completions of procedure and additional 15 minutes continue every 5 minute vital signs and the P.A.R. score; then discharge to a Phase I or Fast Track to Phase II per the following guidelines: * Discharge Patient to appropriate Phase II area if PAR is 8 or greater or return to pre- procedure baseline. The post - procedure orders will be as directed. * If PAR score is less than 8 or not return to pre-procedure baseline then patient will follow Phase I monitoring till PAR is reached for Phase II. The Phase I may be done in procedure room or may call to secure a Phase I area. * If naloxone or flumazenil are used for reversal, hold in Phase I for an additional 60 -120 minutes before discharge to Phase II. Please call the Sedation Physician to re-evaluate and complete post-note for discharge to Phase II area. Do NOT discharge from procedure sedation or Phase 1 until post- sedation evaluation note is complete by procedure /sedation MD Sedation Discharge Instructions to be given to the patient at discharge to home.
--- NOTE | 2017-08-17 12:04 | OPERATIVE REPORT ---
DATE OF OPERATION: 08/17/2017 PROCEDURE: Fiberoptic bronchoscopy with bronchoalveolar lavage. INDICATIONS: COPD/mucoid impaction. ANESTHESIA PREOPERATIVELY: None. ANESTHESIA DURING PROCEDURE: 5 mg IV Versed, 50 mcg IV fentanyl, 20 mL 2% Xylocaine spray above and below the cords, 4% viscous Xylocaine intranasally. PROCEDURE: Fiberoptic bronchoscope was inserted into the left naris with minimal difficulty and passed off the true vocal cords. The cords appear to approximate normally with phonation without evidence for paralysis. A polypoid lesion was seen involving the lower third of the left vocal cord. The photograph was taken. The scope was then passed through the cords into the trachea and right and left tracheobronchial tree without difficulty. The trachea was sharp. Evidence for endoscopic dynamic airway collapse involving the right and left mainstem bronchi at the level of the eligio were noted. The right mainstem bronchus was entered and the scope was then introduced into the right mainstem bronchus. No endobronchial lesions were seen. Thick mucopurulent and mucoviscous secretion was seen virtually including the right bronchus intermedius and was lavaged until clear. The right upper lobe, the apical posterior, anterior segments, bronchus intermedius, right middle lobe and the medial lateral segments and all basilar segments right lower lobe were identified with virtual all them were occluded by thick mucoviscus and bloody secretion. A copious normal saline was utilized and lavaged into these regions. A total of 15 mL of 20% Mucomyst was instilled throughout the right tracheobronchial tree. At that point, the scope was then entered into the left mainstem bronchus and similar findings were noted, but the left lower lobe virtually occluded by thick mucoviscous and mucopurulent as well as bloody secretions. In addition to copiously lavaging this area with normal saline, another 15 mL of 20% Mucomyst was instilled. The scope was removed for 5 minutes and then reinserted. Multiple attempts were made to suction the thick mucoviscous secretion and on multiple occasions, manual compression of the suction port was applied and the scope was gently removed with thick tenacious secretion adherent at the distal end of the scope. The scope was lavaged until clear and reinserted on multiple occasions involving the left naris. Some epistaxis, which was controllable was elicited by the multiple attempts and passage of the scope to the nasopharynx, to the cords involving the trachea and right and left tracheobronchial tree. At termination of procedure, virtually all lobar or segmental bronchi were patent and the secretions from the right and left lower lobes were sent for appropriate studies. No brushings or biopsies were necessary. The scope was removed and then the epistaxis abated. No sign of respiratory distress or hypoxemia were noted. Will await microbiological and cytologic examination of the bronchial washings. I attest to the content of the Intraoperative Record and any orders documented therein. Any exception s are noted below.
[2017-08-17] MEDS ORDERED: NURSING VERBAL MED ORDER ONE (15:00)
[2017-08-17] MEDS: ACETYLCYSTEINE INHAL SOLN 10% 4 ML INH SCH (19:58)
[2017-08-17] MEDS: LORAZEPAM 0.5 MG TAB PO SCH (20:28)
[2017-08-18 05:18] LABS: HEMATOCRIT 42.4 % (42-52); HEMOGLOBIN 14.7 g/dL (14.0-18.0); MEAN CELL VOLUME 91.6 fL (80-100); MEAN CORPUSCULAR HEMOGLOBIN 31.7 pg (25-34); MEAN CORPUSCULAR HGB CONC 34.7 g/dl (32-36); PLATELET COUNT 203 K/uL (130-400); RED CELL DISTRIBUTION WIDTH SD 47.1 fL (36.4-46.3); WHITE BLOOD COUNT 20.02 K/uL (4.8-10.8)
[2017-08-18 05:44] LABS: CREATININE 1.47 mg/dl (0.60-1.40); POTASSIUM 4.1 mmol/L (3.5-5.1)
[2017-08-18] MEDS: HEPARIN SOD 5000 UNIT/0.5 ML CARP SQ SCH (06:00)
[2017-08-18 07:18] VITALS: BP_SYST 123; BP_SYST 126; BP_DIAS 73; PULSE 64; TEMP 36.7; O2SAT 92
[2017-08-18 07:23] VITALS: PULSE 57; O2SAT 92
[2017-08-18] MEDS: ALBUT/IPRATROP 3MG/0.5MG NEB 3 ML VIAL INH SCH ×2 (07:23→11:24)
[2017-08-18] MEDS: ACETYLCYSTEINE INHAL SOLN 10% 4 ML INH SCH (07:23)
--- NOTE | 2017-08-18 08:27 | PULMONARY PROGRESS NOTE ---
DATE: 08/18/2017 SUBJECTIVE: The patient is much improved from yesterday's bronchoscopy with bronchoalveolar lavage. Profound mucoid impaction was noted. Cultures are pending, but suspect the cultures will only grow out normal derek. It is not my contention that the patient needs additional antibiotic, although we would await on culture results. I believe patient could be discharged today. I would reevaluate him for the need for O2 supplementation having him ambulate on room air and would continue aerosolized bronchodilator, tapered steroid course over the next 16 days and an appointment to see us at our [facility] pulmonary clinic in 2 weeks' time for followup.
[2017-08-18 08:52] VITALS: PULSE 63
[2017-08-18] MEDS: METOPROLOL SUCC 25MG EXT REL TAB PO SCH (08:52)
[2017-08-18] MEDS: GUAIFENESIN 600 MG TABCR PO SCH (08:52)
[2017-08-18 11:25] VITALS: PULSE 79; O2SAT 90
[2017-08-18] MEDS ORDERED: GFNSR600 PO (12:12)
[2017-08-18] MEDS ORDERED: TPRSR25 PO (12:12)
[2017-08-18] MEDS ORDERED: PRD20 PO (12:12)
--- NOTE | 2017-08-18 12:14 | Discharge Instructions ---
Discharge Instructions Date of Service Aug 18, 2017. Admission Reason for Admission: Copd Exacerbation Discharge Discharge Diagnosis / Problem: COPD exacerbation with mucoid impaction Discharge Goals Goal(s): Decrease discomfort, Improve function, Increase independence Activity Recommendations Activity Limitations: resume your previous activity You should use your duoneb inhaler every 4-6 hours while awake, even if you do not feel short of breath until you follow up with Dr. Ireland in 2 weeks. You should ask him at that time if you need to continue using this scheduled or if you can return to as needed use based on your lung exam. . Current Hospital Diet Patient's current hospital diet: Regular Diet Discharge Diet Recommended Diet: AHA Diet (Heart Healthy) Procedures Procedures Performed: BRONCHOSCOPY Pending Studies Studies pending at discharge: yes List of pending studies: Bronchoscopy pathology Medical Emergencies . Who to Call and When: Medical Emergencies: If at any time you feel your situation is an emergency, please call 911 immediately. . Non-Emergent Contact Non-Emergency issues call your: Primary Care Provider, [employer] . . "Provider Documentation" section prepared by Itzel Miller. .
--- NOTE | 2017-08-18 12:17 | Discharge Summary ---
Discharge Summary Date of Service Aug 18, 2017. Discharge Summary Admission Date: Aug 13, 2017 at 15:18 Discharge Date: Aug 18, 2017 Discharge Disposition: Home Principal Diagnosis: COPD exacerbation with mucoid plugging Problems/Secondary Diagnoses: O2 dependent COPD HTN Immunizations: Have You Had Influenza Vaccine: Unknown Procedures: Bronch 3/5 Consultations: Dr. Gold Medication Reconciliation New Medications: Guaifenesin Ext Rel (Mucinex Ext Rel) 600 Mg Tabcr 1200 MG PO Q12 for 30 Days, #120 TAB Metoprolol Succinate (Metoprolol Succinate ER) 25 Mg Tabcr 12.5 MG PO BID for 30 Days, #30 TABS Prednisone (Prednisone) 20 Mg Tab 40 MG PO DAILY for 18 Days, #42 TAB Take 4 tabs daily x 6 days, then 2 tabs daily x6 days, then 1 tab daily x6 days. Continued Medications: Ipratropium-Albuterol (Duoneb) 3 Ml Nebu 1 TREATMENT INH Q4H PRN for SOB/Wheezing, INHA Tiotropium Milo (Spiriva Handihaler) 18 Mcg/ Aerp 1 CAP INH DAILY, INHALER [advair diskus] () 2 PUFF INH DAILY Discontinued Medications: [prednisone] () 1 TAB PO DAILY Discharge Exam Pt feels his breathing is much improved. He has been able to bring up some sputum now. Overall much better. He feels he is still a bit SOB with ambulation, but feels comfortable to go home as he has O2 set up there already. Tolerating PO without issue. No chest pain. Pt denies fever, abd pain, n/v/c/ d, LE pain or swelling. Physical Exam: General Appearance: WD/WN, no apparent distress Eyes: normal inspection, sclerae normal Respiratory/Chest: no respiratory distress, + decreased breath sounds, + pertinent finding (neg for wheezing) Cardiovascular: regular rate, rhythm, no edema Abdomen / GI: non tender, soft Extremities: no calf tenderness, no pedal edema Neurologic/Psychiatric: alert, normal mood/affect, oriented x 3 Skin: normal color, warm/dry Hospital Course 71-year-old male transferred from [facility] with chronic oxygen dependent hypoxic respiratory failure with failure to improve despite pulmonary toilet chest vest steroid treatment Hypoxic resp. failure Likely from mucous plugging and much improved s/p bronch 35 Bronch noted for severe mucoid impaction Baseline home nasal cannula use PFTs show moderate COPD. Mucomyst to continue as outpt Oxygen dependent COPD chronic respiratory failure with hypoxia the patient will be supplemented with oxygen as needed prednisone 40 mg QD with taper Continue duo nebs q4-6hrs as outpt until f/u and can possibly go to PRN if lungs are continued to be improved Cardiovascular the patient is maintained on aspirin and metoprolol 0.5 twice daily Insomnia requires Ativan to sleep Tobacco abuse currently still smoking we did encourage him to have smoking cessation Total Time Spent: Greater than 30 minutes This includes examination of the patient, discharge planning, medication reconciliation, and communication with other providers. Discharge Instructions Please refer to the electronic Patient Visit Report (Discharge Instructions) for additional information. Follow-Up Dr. Ireland in [address] Real next week Additional Copies To Morgan Real M.D.
[2017-08-18 13:00] VITALS: BP 126/73; PULSE 79; TEMP 36.7; O2SAT 90
[2017-08-19 15:42] LABS: HERPES SIMPLEX VIRUS CULT NOT ISOLATED (NOT ISOLATED)
== END 2017-08-18 15:13 | disposition home or self-care (01) | DRG 167 ==
LOC: C.MSN 15:18
PROVIDERS: ADMIT Internal Medicine; ATTEND Family Medicine
PROC: 0BCB8ZZ Extirpation of Matter from Left Lower Lobe Bronchus, Via Natural or Artificial Opening Endoscopic (ICD-10-PCS; principal; 2017-08-17 11:00)
PROC: 0BC68ZZ Extirpation of Matter from Right Lower Lobe Bronchus, Via Natural or Artificial Opening Endoscopic (ICD-10-PCS; principal; 2017-08-17 11:00)
PROC: 0B9J8ZX Drainage of Left Lower Lung Lobe, Via Natural or Artificial Opening Endoscopic, Diagnostic (ICD-10-PCS; principal; 2017-08-17 11:00)
PROC: 0B9F8ZX Drainage of Right Lower Lung Lobe, Via Natural or Artificial Opening Endoscopic, Diagnostic (ICD-10-PCS; principal; 2017-08-17 11:00)
DX: J44.1 Chronic obstructive pulmonary disease with (acute) exacerbation (principal); J96.11 Chronic respiratory failure with hypoxia; T17.990A Other foreign object in respiratory tract, part unspecified in causing asphyxiation, initial encounter; I10 Essential (primary) hypertension; G47.00 Insomnia, unspecified; F17.210 Nicotine dependence, cigarettes, uncomplicated; Z51.81 Encounter for therapeutic drug level monitoring; Z79.899 Other long term (current) drug therapy; Z79.82 Long term (current) use of aspirin; Z79.52 Long term (current) use of systemic steroids; Z79.51 Long term (current) use of inhaled steroids; Z99.81 Dependence on supplemental oxygen; Z83.3 Family history of diabetes mellitus; Z83.1 Family history of other infectious and parasitic diseases; X58.XXXA Exposure to other specified factors, initial encounter